=== PATIENT | female | born 1995 | race Caucasian/White ===

== ENCOUNTER 2020-12-28 02:51 | Outpatient (CLI) | payer BC, SELFPAY ==
[2020-12-28 16:44] LABS: FREE T4 0.82 ng/dL (0.76-1.46)
[2020-12-28 22:01] LABS: Prolactin 3.5 ng/mL (See Table)
== END 2020-12-28 02:52 | disposition home or self-care (01) ==
LOC: LBO 02:51
PROVIDERS: Obstetrics & Gynecology; PCP Student in an Organized Health Care Education/Training Program; Visit Provider Student in an Organized Health Care Education/Training Program
DX: E03.9 Hypothyroidism, unspecified (principal); N92.6 Irregular menstruation, unspecified
CPT/HCPCS: 36415; 84146; 84439; 84443

== ENCOUNTER 2021-01-13 09:27 | Outpatient (CLI) | payer BC, SELFPAY ==
[2021-01-14 18:05] LABS: COVID-19 RT-PCR UVMMC Result Negative (Negative)
== END 2021-01-13 09:28 | disposition home or self-care (01) ==
PROVIDERS: PCP Student in an Organized Health Care Education/Training Program; Visit Provider Student in an Organized Health Care Education/Training Program
DX: Z20.822 Contact with and (suspected) exposure to COVID-19 (principal)
CPT/HCPCS: U0003

== ENCOUNTER 2021-02-20 03:37 | Outpatient (CLI) | payer BC, SELFPAY ==
[2021-02-20 13:09] LABS: HGB 13.1 g/dL (11.2-15.7); MCH 29.5 pg (27.0-33.0); MCHC 32.8 % (32.0-36.0); MCV 90.1 fL (80-95); MPV 9.7 fL (8.0-11.0); Platelet Count 158 10^3/uL (130-400); RBC 4.44 10^6/uL (3.93-5.22); RDW 12.4 % (11.7-14.6); RDW-SD 40.8 fL; WBC 4.25 10^3/uL (4.4-10.8)
[2021-02-20 14:07] LABS: TSH (W/Ref FT4) 3.36 uIU/mL (0.36-3.74)
== END 2021-02-20 03:38 | disposition home or self-care (01) ==
LOC: LBO 03:37
PROVIDERS: PCP Student in an Organized Health Care Education/Training Program; Visit Provider Student in an Organized Health Care Education/Training Program
DX: E03.9 Hypothyroidism, unspecified (principal); D72.9 Disorder of white blood cells, unspecified; G25.81 Restless legs syndrome
CPT/HCPCS: 36415; 85027; 84443

== ENCOUNTER 2021-04-07 02:26 | Outpatient (CLI) | payer BC, SELFPAY ==
[2021-04-07 13:08] LABS: HCT 39.8 % (36.0-46.0); HGB 13.4 g/dL (11.2-15.7); MCH 29.8 pg (27.0-33.0); MCHC 33.7 % (32.0-36.0); MCV 88.4 fL (80-95); MPV 10.6 fL (8.0-11.0); Platelet Count 159 10^3/uL (130-400); RDW 12.5 % (11.7-14.6); RDW-SD 40.6 fL; WBC 4.46 10^3/uL (4.4-10.8)
[2021-04-07 14:05] LABS: TSH (W/Ref FT4) 2.85 uIU/mL (0.36-3.74)
== END 2021-04-07 02:27 | disposition home or self-care (01) ==
LOC: LBO 02:27
PROVIDERS: PCP Student in an Organized Health Care Education/Training Program; Visit Provider Student in an Organized Health Care Education/Training Program
DX: E03.9 Hypothyroidism, unspecified (principal); D72.819 Decreased white blood cell count, unspecified
CPT/HCPCS: 36415; 85027; 84443

== ENCOUNTER 2021-07-20 03:05 | Outpatient (CLI) | payer BC, SELFPAY ==
[2021-07-20 09:14] LABS: Anion Gap 8.5 mmol/L (3-11); BUN 12 mg/dL (7-18); CO2 27.5 mmol/L (21.0-32.0); CREATININE 0.8 mg/dL (0.55-1.02); Chloride 107 mmol/L (98-107); Glucose 99 mg/dL (74-106); Potassium 4.3 mmol/L (3.5-5.1); Sodium 143 mmol/L (136-145); TSH (W/Ref FT4) 2.96 uIU/mL (0.36-3.74)
== END 2021-07-20 03:06 | disposition home or self-care (01) ==
LOC: LBO 03:05
PROVIDERS: PCP Student in an Organized Health Care Education/Training Program; Visit Provider Student in an Organized Health Care Education/Training Program
DX: E03.9 Hypothyroidism, unspecified (principal); E86.0 Dehydration; R63.8 Other symptoms and signs concerning food and fluid intake
CPT/HCPCS: 36415; 80048; 84443

== ENCOUNTER 2021-07-21 16:23 | Outpatient (REF) | payer BC, SELFPAY ==
[2021-07-24 15:35] LABS: Chlamydia Result Negative (Negative); GC Result Negative (Negative)
== END 2021-07-21 16:24 | disposition home or self-care (01) ==
LOC: LBN 16:23
PROVIDERS: PCP Student in an Organized Health Care Education/Training Program; Visit Provider Obstetrics & Gynecology
DX: Z11.3 Encounter for screening for infections with a predominantly sexual mode of transmission (principal)
CPT/HCPCS: 87491; 87591; 87480; 87510; 87660

== ENCOUNTER 2021-08-17 15:28 | Outpatient (REF) | payer BC, SELFPAY ==
--- NOTE | 2021-08-17 14:30 | SKI_PTH ---
PATIENT: Machelle Monreal LOC: [facility] U#:[id number] AGE/SX: 25/F ROOM: RE08/17/[address]: NIMCO Castro : 1995 BED: DIS: 08/17/2021 SPEC #: [id number] RECD: 08/18/21 10:53 STATUS: ABY REQ #: [id number] CLAUDE: 08/17/21 14:[address]: Shereen Jett DEPT: Surgical Specimen RECD BY: Michelle Escobar ENTERED: 08/18/21 10:55 SP TYPE: EMMA MANCIA DR: Jazmin Gibbs DO Tissues: 1 - SKIN BIOPSY(SHAVE/PUNCH) 2 - SKIN BIOPSY(SHAVE/PUNCH) Procedures: SKIN LEVEL 4 Comments: [id number]
== END 2021-08-17 15:29 | disposition home or self-care (01) ==
LOC: LBN 15:28
PROVIDERS: PCP Student in an Organized Health Care Education/Training Program; Visit Provider Physical Therapy Assistant
DX: L82.1 Other seborrheic keratosis (principal); D23.71 Other benign neoplasm of skin of right lower limb, including hip; L85.9 Epidermal thickening, unspecified
CPT/HCPCS: 88305

== ENCOUNTER 2021-10-03 03:01 | Outpatient (CLI) | payer BC, SELFPAY ==
[2021-10-03 10:23] LABS: TSH (W/Ref FT4) 1.76 uIU/mL (0.36-3.74)
[2021-10-03 16:34] LABS: T3,Free 3.4 pg/mL (2.8-5.3)
[2021-10-03 18:04] LABS: Thyroglobulin Antibody 256 U/mL (<=60); Thyroperoxidase Antibody >1300 U/mL (<=60)
[2021-10-06 16:11] LABS: Thyroid Stimulating Immunoglob <1.0 TSI index (<=1.3)
== END 2021-10-03 03:02 | disposition home or self-care (01) ==
LOC: LBO 03:02
PROVIDERS: PCP Student in an Organized Health Care Education/Training Program; Visit Provider Student in an Organized Health Care Education/Training Program
DX: E03.9 Hypothyroidism, unspecified; R53.83 Other fatigue; D72.819 Decreased white blood cell count, unspecified
CPT/HCPCS: 36415; 86376; 84443; 84445; 84481

== ENCOUNTER 2021-10-26 03:41 | Outpatient (CLI) | payer BC, SELFPAY ==
[2021-10-26 15:27] LABS: Anion Gap 11.1 mmol/L (3-11); BUN 12 mg/dL (7-18); CO2 25.9 mmol/L (21.0-32.0); CREATININE 0.7 mg/dL (0.55-1.02); Calcium 8.8 mg/dL (8.5-10.1); Calculated LDL 86 mg/dL (<100); Chloride 105 mmol/L (98-107); Cholesterol 145 mg/dL (<200); Glucose 83 mg/dL (74-106); HDL Cholesterol 46 mg/dL (40-60); Potassium 3.8 mmol/L (3.5-5.1); Sodium 142 mmol/L (136-145); Triglyceride 66 mg/dL (<150)
== END 2021-10-26 03:42 | disposition home or self-care (01) ==
LOC: LBO 03:41
PROVIDERS: PCP Student in an Organized Health Care Education/Training Program; Visit Provider Student in an Organized Health Care Education/Training Program
DX: E03.9 Hypothyroidism, unspecified (principal); R63.1 Polydipsia; Z13.220 Encounter for screening for lipoid disorders; Z13.1 Encounter for screening for diabetes mellitus
CPT/HCPCS: 36415; 80048; 80061; 83036

== ENCOUNTER 2022-02-05 15:24 | Outpatient (REF) | payer BC, SELFPAY | END 2022-02-05 15:25 | disposition home or self-care (01) | LOC: LBN 15:24 | PROVIDERS: PCP Student in an Organized Health Care Education/Training Program; Visit Provider Obstetrics & Gynecology | DX: N89.8 Other specified noninflammatory disorders of vagina (principal) | CPT/HCPCS: 87480; 87510; 87660 ==

== ENCOUNTER 2022-02-09 02:36 | Outpatient (CLI) | payer BC, SELFPAY ==
[2022-02-09 14:28] LABS: TSH (W/Ref FT4) 2.23 uIU/mL (0.36-3.74)
[2022-02-09 18:28] LABS: Lab Add On Test DONE
[2022-02-09 18:53] LABS: T4 6.7 ug/mL (4.7-13.3)
== END 2022-02-09 02:37 | disposition home or self-care (01) ==
LOC: LBO 02:37
PROVIDERS: PCP Student in an Organized Health Care Education/Training Program; Visit Provider Student in an Organized Health Care Education/Training Program
DX: E03.9 Hypothyroidism, unspecified (principal); E06.3 Autoimmune thyroiditis
CPT/HCPCS: 36415; 84436; 84443

== ENCOUNTER 2022-04-09 03:56 | Outpatient (CLI) | payer SELFPAY ==
[2022-04-09 14:49] LABS: TSH (W/Ref FT4) 1.54 uIU/mL (0.36-3.74)
[2022-04-09 23:08] LABS: T3,Free 3.6 pg/mL (2.8-5.3)
== END 2022-04-09 03:57 | disposition home or self-care (01) ==
PROVIDERS: PCP Student in an Organized Health Care Education/Training Program; Visit Provider Student in an Organized Health Care Education/Training Program
DX: E06.3 Autoimmune thyroiditis (principal); E03.9 Hypothyroidism, unspecified
CPT/HCPCS: 36415; 84443; 84481

== ENCOUNTER 2022-05-02 11:02 | Outpatient (CLI) | payer SELFPAY ==
[2022-05-02 12:30] VITALS: BP 110/77; PULSE 70; RESP 22; TEMP 36.7; O2SAT 99
[2022-05-02 13:00] VITALS: BP 109/69; PULSE 70; RESP 16; TEMP 36.3; O2SAT 99
== END 2022-05-02 11:03 | disposition home or self-care (01) ==
LOC: INF 11:11
PROVIDERS: PCP Student in an Organized Health Care Education/Training Program; Visit Provider Family Medicine
DX: U07.1 COVID-19 (principal)
CPT/HCPCS: 96374; Q0222

== ENCOUNTER 2022-05-14 03:01 | Outpatient (CLI) | payer OTHER, SELFPAY ==
[2022-05-14 14:53] LABS: TSH (W/Ref FT4) 2.25 uIU/mL (0.36-3.74)
== END 2022-05-14 03:02 | disposition home or self-care (01) ==
PROVIDERS: PCP Student in an Organized Health Care Education/Training Program; Visit Provider Student in an Organized Health Care Education/Training Program
DX: E03.9 Hypothyroidism, unspecified (principal); E06.3 Autoimmune thyroiditis; D89.89 Other specified disorders involving the immune mechanism, not elsewhere classified
CPT/HCPCS: 36415; 84443

== ENCOUNTER 2022-05-28 04:14 | Outpatient (CLI) | payer OTHER, SELFPAY ==
[2022-05-28 15:47] LABS: Kit/Specimen SENT
[2022-05-28 15:51] LABS: Abs Immature Grans 0.01 10^3/uL (0.0-0.06); Absolute Basophil Count 0.02 10^3/uL (0.0-0.2); Absolute Eosinophil Count 0.03 10^3/uL (0.0-0.7); Absolute Lymphocyte Count 1.58 10^3/uL (1.2-3.4); Absolute Neutrophil Count 3.16 10^3/uL (1.2-6.7); Basophils % 0.4; Eosinophils % 0.6; HCT 37.3 % (36.0-46.0); Immature Grans % 0.2; MCH 30.7 pg (27.0-33.0); MCHC 34.9 % (32.0-36.0); MCV 88 fL (80-95); MPV 10.3 fL (8.0-11.0); Monocytes % 5.9; Neutrophils % 61.9; Platelet Count 143 10^3/uL (130-400); RBC 4.24 10^6/uL (3.93-5.22); RDW 12.2 % (11.7-14.6); RDW-SD 38.6 fL
[2022-05-28 16:15] LABS: TSH (W/Ref FT4) 1.05 uIU/mL (0.36-3.74)
[2022-05-28 17:02] LABS: *AMPHETAMINES SCREEN URINE Negative (Negative); *BARBITURATES SCREEN URINE Negative (Negative); *BENZODIAZEPINES SCREEN URINE Negative (Negative); Cannabinoids THC Negative (Negative); Cocaine Screen,Urine Negative (Negative); METHADONE URINE SCREEN Negative (Negative); OPIATES URINE SCREEN Negative (Negative)
[2022-05-28 17:04] LABS: Tricyclic Antidepressants Negative (Negative)
[2022-05-29 09:43] LABS: Hepatitis B Surface Ag Negative (Negative)
[2022-05-29 10:16] LABS: Hepatitis C Ab w Rflx HCV PCR Negative (Negative)
[2022-05-29 10:20] LABS: HIV-1/2 Ag & Ab Screen Negative (Negative)
[2022-05-29 10:44] LABS: Varicella IgG Antibody Positive (See Note)
[2022-05-29 10:47] LABS: Rubella IgG Ab (UVM) Positive (See Note)
[2022-05-30 18:45] LABS: Syphilis IgG w/Reflex Nonreactive (Nonreactive)
[2022-05-31 17:37] LABS: Specimen WB Whole Blood
[2022-06-01 11:58] LABS: Buprenorphine Negative ng/mL (Cutoff: 5.0); Norbuprenorphine Negative ng/mL (Cutoff: 2.5)
[2022-06-01 18:11] LABS: Result Summary NEGATIVE; Specimen WB Whole Blood
== END 2022-05-28 04:15 | disposition home or self-care (01) ==
LOC: LBO 04:14 → LBN 17:53
PROVIDERS: Advanced Practice Midwife; PCP Student in an Organized Health Care Education/Training Program; Visit Provider Advanced Practice Midwife
DX: O99.281 Endocrine, nutritional and metabolic diseases complicating pregnancy, first trimester (principal); E03.9 Hypothyroidism, unspecified; Z3A.11 11 weeks gestation of pregnancy
CPT/HCPCS: 36415; 80307; 81329; 86787; 86803; 86850; 86900; 86901; 87340; 87389; 81220; 84443; 85025; 86762; 86780; 87086

== ENCOUNTER 2022-06-25 03:43 | Outpatient (CLI) | payer OTHER, MEDICAID, SELFPAY ==
[2022-06-25 11:11] LABS: HCT 36.3 % (36.0-46.0); HGB 12.6 g/dL (11.2-15.7); MCH 30.2 pg (27.0-33.0); MCHC 34.7 % (32.0-36.0); MCV 87 fL (80-95); MPV 9.7 fL (8.0-11.0); Platelet Count 131 10^3/uL (130-400); RBC 4.17 10^6/uL (3.93-5.22); RDW 12.3 % (11.7-14.6); RDW-SD 39.1 fL; WBC 4.52 10^3/uL (4.4-10.8)
[2022-06-25 11:37] LABS: Glucose,1 Hr (Glucola) 127 mg/dL (80-140)
[2022-06-25 11:54] LABS: FREE T4 1.32 ng/dL (0.76-1.46); TSH 0.67 uIU/mL (0.36-3.74)
[2022-06-27 15:32] LABS: AFP 22.4 ng/mL; Calculated age at EDD 27 years; Cigarette smoking status non-Smoker; GA used in risk estimate Scan estimate; IVF Pregnancy No; Initial or repeat testing Initial testing; Insulin dependent diabetes No; Maternal Weight 192 lbs; Number of Fetuses 1; Physician Phone Number 802-748-7300; Prev Pregnancy w/NTD No; RECOMMENDED FOLLOW UP None.; Results Summary Normal risk
== END 2022-06-25 03:44 | disposition home or self-care (01) ==
LOC: LBO 03:44
PROVIDERS: Advanced Practice Midwife; PCP Student in an Organized Health Care Education/Training Program; Visit Provider Advanced Practice Midwife
DX: Z34.91 Encounter for supervision of normal pregnancy, unspecified, first trimester; E06.3 Autoimmune thyroiditis; N89.8 Other specified noninflammatory disorders of vagina
CPT/HCPCS: 36415; 82950; 85027; 82105; 84439; 84443; 87086; 87480; 87510; 87660

== ENCOUNTER → 2022-07-18 00:49 | Outpatient (CLI) | payer MEDICAID, SELFPAY ==
--- NOTE | 2022-07-18 07:15 | DI.US_ITS ---
Exam(s) US OB 2-3 TRIMESTER EXAM: US OB 2-3 TRIMESTER CLINICAL HISTORY: 18 wk anatomy survey,Z34.90. TECHNIQUE: Transabdominal obstetrical ultrasound was performed. COMPARISON: No exams were available for comparison FINDINGS: There is a single viable intrauterine gestation with cardiac activity identified-151 bpm. Amniotic fluid: There is a normal amount of amniotic fluid. Placental location: The placenta is posterior grade 1,with no evidence of placenta previa. ANATOMY: A 3 vessel umbilical cord is seen. A four-chamber cardiac view was obtained. Right and left ventricular outflow tracts were imaged. There are no obvious abnormalities of the spinal column evident. There is no obvious abnormal ity of the anterior abdominal wall. stomach and urinary bladder are identified and there is no evidence of hydronephrosis. No abnormalities of the upper lip region are identified. No evidence of choroid plexus cysts i n the brain. Dating parameters place this at approximately 19 weeks and 3 days gestational age. BPD measures 18 weeks and 4 days HC measures 19 weeks and 4 days AC measures 20 weeks and 2 days FL measures 19 weeks and 3 days Estimated weight is 315 grams gm-0 pounds 11 ounces Fetus is at the greater than 97th percentile on the Hadlock scale. IMPRESSION:: Single viable intrauterine gestation which is approximately 19 weeks and 3 days gestati onal age, implying an LANI of December 09, 2022. There are no obvious anomalies evident on today's study. The placenta is posterior with no evidence of placenta previa. There is a normal amount of amniotic fluid. DATA REPOSITORY:
== END ==
PROVIDERS: PCP Student in an Organized Health Care Education/Training Program; Visit Provider Advanced Practice Midwife
DX: Z34.92 Encounter for supervision of normal pregnancy, unspecified, second trimester (principal)
CPT/HCPCS: 76805

== ENCOUNTER 2022-07-20 01:37 | Outpatient (CLI) | payer MEDICAID, SELFPAY ==
[2022-07-20 14:22] LABS: HCT 32.9 % (36.0-46.0); HGB 11.5 g/dL (11.2-15.7); MCH 30.7 pg (27.0-33.0); MCV 88 fL (80-95); MPV 10.1 fL (8.0-11.0); Platelet Count 128 10^3/uL (130-400); RBC 3.75 10^6/uL (3.93-5.22); RDW 12.7 % (11.7-14.6); RDW-SD 40.3 fL; WBC 5.86 10^3/uL (4.4-10.8)
[2022-07-20 15:14] LABS: FREE T4 1.01 ng/dL (0.76-1.46); TSH 3.21 uIU/mL (0.36-3.74)
[2022-07-23 05:25] LABS: Vitamin D 25 Total 48.6 ng/mL (30-100)
== END 2022-07-20 01:38 | disposition home or self-care (01) ==
LOC: LBO 01:37
PROVIDERS: Student in an Organized Health Care Education/Training Program; PCP Student in an Organized Health Care Education/Training Program; Visit Provider Advanced Practice Midwife
DX: Z34.92 Encounter for supervision of normal pregnancy, unspecified, second trimester
CPT/HCPCS: 36415; 82306; 85027; 84439; 84443; 87086